=== PATIENT | male | born 1980 | race Caucasian/White ===

== ENCOUNTER → 2018-09-16 | Outpatient (CLI) | payer OTHER ==
[~2018-09-16] VITALS: Ht 181.6 cm; Wt 160.3 kg
[~2018-09-16] MED LIST: LAMICTAL 100MG100 MG PO; NORVASC 10MG10 MG PO
[2018-09-16 16:40] VITALS: BP 120/80; PULSE 80
== END ==
LOC: LIGHT 15:11
DX: G47.33 Obstructive sleep apnea (adult) (pediatric) (principal); E03.9 Hypothyroidism, unspecified; M15.9 Polyosteoarthritis, unspecified; E66.9 Obesity, unspecified; Z68.42 Body mass index [BMI] 45.0-49.9, adult; Z71.3 Dietary counseling and surveillance
CPT/HCPCS: G0463

== ENCOUNTER → 2018-09-30 | Outpatient (CLI) | payer OTHER | LOC: LIGHT 09:51 | DX: G47.33 Obstructive sleep apnea (adult) (pediatric) (principal); E78.5 Hyperlipidemia, unspecified; M15.9 Polyosteoarthritis, unspecified; E66.01 Morbid (severe) obesity due to excess calories; Z68.42 Body mass index [BMI] 45.0-49.9, adult; Z71.3 Dietary counseling and surveillance ==

== ENCOUNTER → 2018-10-14 | Outpatient (CLI) | payer OTHER ==
[~2018-10-14] VITALS: Ht 181.6 cm; Wt 159.9 kg
[~2018-10-14] MED LIST changes: +ZESTRIL 10MG10 MG PO
[2018-10-14 16:50] VITALS: BP 108/56; PULSE 88
== END ==
LOC: LIGHT 11:48
DX: G47.33 Obstructive sleep apnea (adult) (pediatric) (principal); E78.5 Hyperlipidemia, unspecified; M15.9 Polyosteoarthritis, unspecified; E66.01 Morbid (severe) obesity due to excess calories; Z68.42 Body mass index [BMI] 45.0-49.9, adult; Z71.3 Dietary counseling and surveillance
CPT/HCPCS: G0463

== ENCOUNTER → 2018-12-01 | Outpatient (CLI) | payer OTHER | LOC: LIGHT 15:59 | DX: G47.33 Obstructive sleep apnea (adult) (pediatric) (principal); E78.5 Hyperlipidemia, unspecified; M15.9 Polyosteoarthritis, unspecified; E66.01 Morbid (severe) obesity due to excess calories; Z68.42 Body mass index [BMI] 45.0-49.9, adult; Z71.3 Dietary counseling and surveillance ==

== ENCOUNTER → 2018-12-04 | Outpatient (CLI) | payer OTHER ==
[~2018-12-04] VITALS: Ht 181.6 cm; Wt 160.3 kg
[2018-12-04 16:35] VITALS: BP 108/60; PULSE 56
== END ==
LOC: LIGHT 11:51
DX: G47.33 Obstructive sleep apnea (adult) (pediatric) (principal); E78.5 Hyperlipidemia, unspecified; E16.9 Disorder of pancreatic internal secretion, unspecified; E66.01 Morbid (severe) obesity due to excess calories; Z68.42 Body mass index [BMI] 45.0-49.9, adult; Z71.3 Dietary counseling and surveillance
CPT/HCPCS: G0463

== ENCOUNTER → 2019-01-08 | Outpatient (CLI) | payer OTHER ==
[~2019-01-08] VITALS: Ht 181.6 cm; Wt 158.5 kg
[2019-01-08 16:31] VITALS: BP 120/70; PULSE 80
== END ==
LOC: LIGHT 13:50
DX: G47.33 Obstructive sleep apnea (adult) (pediatric) (principal); E78.5 Hyperlipidemia, unspecified; M15.9 Polyosteoarthritis, unspecified; E66.01 Morbid (severe) obesity due to excess calories; Z68.42 Body mass index [BMI] 45.0-49.9, adult; Z71.3 Dietary counseling and surveillance
CPT/HCPCS: G0463

== ENCOUNTER → 2019-02-26 | Outpatient (CLI) | payer OTHER | LOC: BHSO 08:44 | DX: Z76.89 Persons encountering health services in other specified circumstances (principal) ==

== ENCOUNTER → 2019-03-17 | Outpatient (CLI) | payer OTHER | LOC: LIGHT 11:06 | DX: G47.33 Obstructive sleep apnea (adult) (pediatric) (principal); E78.5 Hyperlipidemia, unspecified; M15.9 Polyosteoarthritis, unspecified; E66.01 Morbid (severe) obesity due to excess calories; Z68.42 Body mass index [BMI] 45.0-49.9, adult; Z71.3 Dietary counseling and surveillance ==

== ENCOUNTER → 2019-03-18 | Outpatient (CLI) | payer OTHER | LOC: LIGHT 15:58 | DX: G47.33 Obstructive sleep apnea (adult) (pediatric) (principal); E78.5 Hyperlipidemia, unspecified; M15.9 Polyosteoarthritis, unspecified; E66.01 Morbid (severe) obesity due to excess calories; Z68.42 Body mass index [BMI] 45.0-49.9, adult; Z71.3 Dietary counseling and surveillance ==

== ENCOUNTER → 2019-04-13 | Outpatient (CLI) | payer OTHER ==
[~2019-04-13] VITALS: Ht 182.9 cm; Wt 150.6 kg
[~2019-04-13] MED LIST changes: +NORCO 325 MG-51 TAB PO
[2019-04-13 13:27] VITALS: BP 116/70; PULSE 72
== END ==
LOC: LIGHT 13:01
DX: G47.33 Obstructive sleep apnea (adult) (pediatric) (principal); E78.5 Hyperlipidemia, unspecified; Z98.84 Bariatric surgery status; E66.01 Morbid (severe) obesity due to excess calories; Z68.42 Body mass index [BMI] 45.0-49.9, adult; Z71.3 Dietary counseling and surveillance

== ENCOUNTER → 2019-06-08 | Outpatient (CLI) | payer OTHER ==
[~2019-06-08] VITALS: Ht 182.9 cm; Wt 134.0 kg
[~2019-06-08] MED LIST changes: +CALCIUM 600 PLU1 TAB PO; +MULTIPLE VITAMI1 CAP PO
[2019-06-08 14:27] VITALS: BP 120/76; PULSE 68
== END ==
LOC: LIGHT 05-11 14:08
DX: G47.33 Obstructive sleep apnea (adult) (pediatric) (principal); Z98.84 Bariatric surgery status; E78.5 Hyperlipidemia, unspecified; E66.01 Morbid (severe) obesity due to excess calories; Z71.3 Dietary counseling and surveillance; Z68.41 Body mass index [BMI] 40.0-44.9, adult

== ENCOUNTER → 2019-09-28 | Outpatient (CLI) | payer OTHER ==
[~2019-09-28] VITALS: Ht 182.9 cm; Wt 115.2 kg
[2019-09-28 16:56] VITALS: BP 114/54; PULSE 72
== END ==
LOC: LIGHT 11:11
DX: Z68.34 Body mass index [BMI] 34.0-34.9, adult (principal); Z98.84 Bariatric surgery status; E78.5 Hyperlipidemia, unspecified
CPT/HCPCS: G0463